=== PATIENT | female | born 1980 | race Caucasian/White ===

== ENCOUNTER 2021-03-25 15:58 | Emergency (ER) | payer OTHER, SELFPAY ==
--- NOTE | ~2021-03-25 | CT_ITS ---
EXAMINATION: CT abdomen pelvis wo con DATE: 03/25/2021 20:40 INDICATION: Right flank pain TECHNIQUE: Computed tomography (CT) of the abdomen and pelvis was performed without intravenous contr ast. Automated exposure control and iterative reconstruction technique were employed. The dose-length product was 1447.30 mGy-cm. COMPARISON: None FINDINGS: Lung bases are clear. No pleural effusion. Heart size is normal. Small pericardial effusion. Small sl iding-type hiatal hernia. Liver, gallbladder, spleen, pancreas, left kidney and bilateral adrenal gla nds are normal. 2.4 cm right renal cyst. No urolithiasis or hydronephrosis. Moderate diverticulosis a long the descending and proximal sigmoid colon without adjacent inflammatory change to suggest divert iculitis. Small bowel and appendix are normal. Bladder, anteverted uterus and bilateral adnexa are un remarkable. No free intraperitoneal gas or fluid. No pathologically enlarged abdominal or pelvic lymp hadenopathy. Chronic mild anterior wedging at T10-T12 with mild thoracolumbar spondylosis. IMPRESSION: 1. No urolithiasis or acute intra-abdominal/pelvic process. 2. Small pericardial effusion. 3. Small sliding-type hiatal hernia. Reviewed, dictated and finalized at location A.
[2021-03-25 16:00] VITALS: BP 146/96; PULSE 113; RESP 16; TEMP 36.7; O2SAT 100
[2021-03-25 16:19] LABS: Basophils Absolute Auto 0.1 K/mm3 (0.0-0.1); Basophils Percent Auto 0.7 % (0.2-1.2); Eosinophils Absolute Auto 0.1 K/mm3 (0-0.3); Eosinophils Percent Auto 1.2 % (0-4.4); Hemoglobin 13.1 g/dL (12.0-15.0); Immature Granulocyte Absolute 0.03 K/mm3 (0.00-0.031); Immature Granulocyte Percent A 0.3 % (0-0.5); Lymphocytes Absolute Auto 2.66 K/mm3 (0.9-3.2); Lymphocytes Percent Auto 27.3 % (18.3-44.2); Mean Corpuscular HGB Conc 33.6 g/dl (32-36); Mean Corpuscular Hemoglobin 29.6 pg (26-34); Mean Corpuscular Volume 88.2 fl (80-100); Mean Platelet Volume 10.9 fl (7.4-10.4); Monocytes Absolute Auto 0.8 K/mm3 (0.1-0.6); Monocytes Percent Auto 7.7 % (2.6-8.5); Neutrophils Absolute Auto 6.1 K/mm3 (1.3-6.7); Neutrophils Percent Auto 62.8 % (45.5-73.1); Platelet Count Result 356 k/mm3 (150-375); Red Blood Count 4.42 M/mm3 (4.2-5.4); Red Cell Distribution Width 13.2 % (11.5-14.5); White Blood Count 9.7 K/mm3 (4.5-10.0)
--- NOTE | 2021-03-25 19:22 | ED.GENADULT ---
HPI - General Adult General Chief complaint: Abdominal Pain Stated complaint: right flank pain Time Seen by Provider: 03/25/21 19:10 History of Present Illness HPI narrative: Patient is a 40-year-old female who presents ER with right-sided flank pain. Began 3 days ago. No trauma. Waxes and wanes in intensity. Mild nausea. No urinary frequency urgency or dysuria. No hematuria. No history of kidney stones. No history of trauma. Denies chest pain or chest pressure or difficulty breathing. Has been taking ibuprofen without relief. Related Data Allergies Allergy/AdvReac Type Severity Reaction Status Date / Time No Known Allergies Allergy Mild Verified 05/22/20 08:53 Review of Systems Review of Systems: All systems reviewed & are unremarkable except as noted in HPI and below Constitutional: Constitutional: Denies chills, Denies fever(s) and Denies weakness ENT: Denies nasal congestion and Denies sore throat Cardiovascular: Cardiovascular: Denies chest pain and Denies radiating jaw, neck or arm pain Gastrointestinal: Gastrointestinal: Reports abdominal pain, Denies diarrhea, Reports nausea and Denies vomiting Genitourinary: Genitourinary: Denies hematuria, Denies nocturia, Denies dysuria and Reports flank pain PMFSH Past Medical History Medical History (Updated 03/25/21 @ 21:07 by Jesse Perez MD) Acute sinus infection BMI 45.0-49.9, adult Facial pain Hypertension Surgical History Surgical History (Updated 03/25/21 @ 19:23 by Jesse Perez MD) No history of previous surgery Family History Family History Other Diabetes mellitus Family history of coronary artery disease Hypertension Social History Social History Smoking status: Never smoker Alcohol intake: never Gender identity (if verbalized by the patient): Female Exam Narrative: GENERAL: Well-appearing, Morbidly obese, and in no acute distress. HEAD: Normocephalic, atraumatic. ENT: Mucous membranes moist. CHEST: Clear to auscultation. No respiratory distress. HEART: Regular rate and rhythm. Normal peripheral pulses. ABDOMEN: Soft, nontender, nondistended. No CVA tenderness. EXTREMITIES: Normal range of motion. No edema. NEURO: Alert and oriented x3. PSYCH: Normal mood and affect. Course Course Emergency Course: Patient informed results. Toradol for pain. Discharge home. Vital Signs Vital signs: Vital Signs Temperature 98.1 F 03/25/21 16:00 Pulse Rate 113 H 03/25/21 16:00 Respiratory Rate 16 03/25/21 16:00 Blood Pressure 146/96 H 03/25/21 16:00 Pulse Oximetry 100 03/25/21 16:00 Temperature 98.2 F 03/25/21 20:10 Pulse Rate 94 03/25/21 20:10 Respiratory Rate 179 H 03/25/21 20:10 Blood Pressure 147/86 H 03/25/21 20:10 Pulse Oximetry 100 03/25/21 20:10 Medical Decision Making Vital Signs Vital Signs: Vital Signs Temperature 98.1 F 03/25/21 16:00 Pulse Rate 113 H 03/25/21 16:00 Respiratory Rate 16 03/25/21 16:00 Blood Pressure 146/96 H 03/25/21 16:00 Pulse Oximetry 100 03/25/21 16:00 Temperature 98.2 F 03/25/21 20:10 Pulse Rate 94 03/25/21 20:10 Respiratory Rate 179 H 03/25/21 20:10 Blood Pressure 147/86 H 03/25/21 20:10 Pulse Oximetry 100 03/25/21 20:10 Lab Data Result diagrams: 03/25/21 16:14 03/25/21 19:57 Labs: Lab Results 03/25/21 03/25/21 03/25/21 Range/Units 16:14 19:57 19:58 WBC 9.7 (4.5-10.0) K/mm3 RBC 4.42 (4.2-5.4) M/mm3 Hgb 13.1 (12.0-15.0) g/dL Hct 39.0 (37.0-47.0) % MCV 88.2 (80-100) fl MCH 29.6 (26-34) pg MCHC 33.6 (32-36) g/dl RDW 13.2 (11.5-14.5) % Plt Count 356 (150-375) k/mm3 MPV 10.9 H (7.4-10.4) fl Immature Gran % (Auto) 0.3 (0-0.5) % Neut % (Auto) 62.8 (45.5-73.1) % Lymph % (Auto) 27.3 (18.3-44.2) % Mon
[2021-03-25 20:10] VITALS: BP 147/86; PULSE 94; RESP 179; TEMP 36.8; O2SAT 100
[2021-03-25 20:20] LABS: Add Urine Microscopic? YES; Appearance Urine Clear (Clear); Bacteria Urine Trace /hpf; Bilirubin Urine Negative (Negative); Blood Urine 1+ (Negative); Color Urine Yellow (Yellow); Glucose Urine UA Negative (Negative); Ketones Urine Negative (Negative); Leukocyte Esterase Ur Negative LEU/UL (Negative); Mucus Urine Rare /lpf; Nitrate Urine Negative (Negative); Protein Urine Negative (Negative); Squamous Epithelial Cell Urine Few /hpf (Few); Urobilinogen Urine Negative mg/dL (<2.0)
[2021-03-25 20:24] LABS: Alanine Aminotransferase 22 U/L (4-35); Albumin Level 4.7 g/dL (3.5-5.1); Alkaline Phosphatase 101 U/L (38-126); Anion Gap 12 mmol/L (8-16); Aspartate Amino Transferase 23 U/L (14-36); Bilirubin,Total 0.5 mg/dL (0.2-1.3); Blood Urea Nitrogen 14 mg/dL (7-17); Calcium 9.9 mg/dL (8.4-10.2); Carbon Dioxide 26 mmol/L (22-30); Chloride 100 mmol/L (98-107); Estimated CRCL calculation 116 ml/min; Estimated Glomerular Filt Rate > 60; Glucose 104 mg/dL (65-110); Lipase 43 U/L (23-300); Potassium 3.7 mmol/L (3.4-5.0); Sodium 138 mmol/L (137-145)
[2021-03-25] MEDS: KETOROLAC 30 MG/ML VIAL (*BKC) IV PUSH (21:06)
== END 2021-03-25 21:07 | disposition home or self-care (01) ==
PROVIDERS: Emergency Medicine; Emergency Provider Emergency Medicine; PCP Family Medicine
DX: R10.9 Unspecified abdominal pain (principal); I10 Essential (primary) hypertension
CPT/HCPCS: 36415; 74176; 80053; 81001; 81025; 83690; 85025; 96374; 99284; J1885

== ENCOUNTER 2021-09-21 07:43 | Outpatient (CLI) | payer OTHER, SELFPAY ==
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
== END 2021-09-21 07:44 | disposition home or self-care (01) ==
LOC: ANHIMG 07:49
PROVIDERS: PCP Family Medicine; Visit Provider Nurse Practitioner Family
DX: R10.32 Left lower quadrant pain (principal)
CPT/HCPCS: 76705

== ENCOUNTER 2021-12-07 09:33 | Outpatient (CLI) | payer OTHER, SELFPAY ==
--- NOTE | ~2021-12-07 | XR_ITS ---
EXAMINATION: XR sacrum coccyx min 2V INDICATION: Low back pain TECHNIQUE: Three views of the sacrum and coccyx are obtained. COMPARISON: CT, 03/25/2021 FINDINGS: Bone alignment is normal. There is no fracture. The soft tissues are unremarkable. IMPRESSION: 1. No radiographic correlate for the patient's symptoms. Reviewed, dictated and finalized at location A.
--- NOTE | ~2021-12-07 | XR_ITS ---
EXAMINATION: XR lumbar spine 2-3V DATE: 12/07/2021 09:51 INDICATION: Low back pain TECHNIQUE: Anteroposterior and lateral views of the lumbar spine, and cone-down lateral view of the l umbosacral junction were obtained. COMPARISON: CT, 03/25/2021 FINDINGS: There is no fracture, dislocation, or subluxation. There is mild loss of intervertebral dis c space height at L1-2. The vertebral body heights are normal. Small degenerative osteophytes project from the anterior endplates of multiple vertebral bodies. There is mild facet osteoarthritis of the lower lumbar spine. The bowel gas pattern is normal. IMPRESSION: 1. Mild lumbar spondylosis without acute findings. Reviewed, dictated and finalized at location A.
== END 2021-12-07 09:34 | disposition home or self-care (01) ==
LOC: ANHIMG 09:35
PROVIDERS: PCP Family Medicine; Visit Provider Nurse Practitioner Family
DX: M54.18 Radiculopathy, sacral and sacrococcygeal region (principal); M47.896 Other spondylosis, lumbar region
CPT/HCPCS: 72100; 72220

== ENCOUNTER 2023-04-03 17:24 | Emergency (ER) | payer OTHER, SELFPAY ==
[2023-04-03 17:38] VITALS: BP 132/76; PULSE 100; RESP 16; TEMP 36.9; O2SAT 100
--- NOTE | 2023-04-03 17:46 | ED.BACK ---
HPI - Back Pain/Injury General Chief Complaint: Back Pain/Injury Stated Complaint: Back pain Time Seen by Provider: 04/03/23 17:39 Source: patient, family () and RN notes reviewed Mode of arrival: ambulatory Limitations: no limitations History of Present Illness HPI Narrative: Patient presents today complaining of right-sided low back pain x1 week. Denies any injury or trauma. Prior to onset of symptoms, patient had hurt her ankle and had been limping for a few days. Has been believes that this may be contributing to the beginning of her symptoms. Patient's ankle is feeling better, but her back pain process. Denies radiation of pain down her leg. Denies numbness or tingling in the extremities or genitalia. Denies loss of bowel or bladder control. She currently rates her pain 5/10, which increases with walking or riding in the car. She has been taking ibuprofen without relief. Related Data Allergies Allergy/AdvReac Type Severity Reaction Status Date / Time No Known Allergies Allergy Mild Verified 04/03/23 17:33 Review of Systems Review of Systems: CONSTITUTIONAL: Denies body aches, fever, chills, or sweats. EYES: Denies visual changes, redness, or discharge. ENT: Denies rhinorrhea, congestion, sore throat, or otalgia. CARDIOVASCULAR: Denies chest pain, palpitations, or edema. RESPIRATORY: Denies cough or dyspnea. GASTROINTESTINAL: Denies abdominal pain, nausea, vomiting, or diarrhea. GENITOURINARY: Denies dysuria or hematuria. SKIN: Denies rash, itching, or wounds. MUSCULOSKELETAL: Denies joint pain, or myalgia.+ back pain NEUROLOGIC: Denies headache, numbness, tingling, or weakness. PSYCH: Denies depression or anxiety. [facility] Past Medical History Medical History Acute sinus infection Adult BMI 50.0-59.9 kg/sq m BMI 45.0-49.9, adult Facial pain Hypertension Surgical History Surgical History No history of previous surgery Family History Family History Father Thyroid activity decreased Mother Hypertension Sibling No problems noted. Other Diabetes mellitus Family history of coronary artery disease Social History Social History Smoking status: Never smoker Second hand tobacco smoke exposure: No Alcohol intake: never Substance use: never Substance use type: does not use Living arrangements: with family Occupation/Education: occupation Additional occupation/education comments: [employer] Gender identity (if verbalized by the patient): Female Comments At time of signature, I have reviewed and agree with nursing past medical, surgical, social and family history unless otherwise noted. Please see nursing chart for further information. There is no relevant family history pertinent to the presenting complaint Exam Narrative: GENERAL: Well-appearing, well-nourished, and in no acute distress. HEAD: Normocephalic, atraumatic. EYES: EOMI. No redness or drainage. Conjunctivae normal. ENT: Mucous membranes pink and moist. NECK: Normal AROM. CHEST: No respiratory distress. MUSCULOSKELETAL: No bony tenderness of the spine. Mild tenderness of the right lower lumbar paraspinal muscles. No extension to the SI joint. Distal sensation intact. Saddle sensation intact. Capillary refill normal. Pedal pulses normal. Dorsiflexion and plantar flexion equal and strong against resistance. Bilateral patellar reflexes 2+. Full range of motion of the hips and knees. EXTREMITIES: Normal range of motion. No edema. SKIN: Warm, dry, no rash. Capillary refill normal. Normal skin turgor. NEURO: No focal deficits. Alert and oriented x3. Gait steady. PSYCH: Normal affect. No signs of depression or anxiety. Course Course Level of
== END 2023-04-03 17:56 | disposition home or self-care (01) ==
PROVIDERS: Emergency Provider Nurse Practitioner; PCP Family Medicine
DX: S39.012A Strain of muscle, fascia and tendon of lower back, initial encounter (principal); I10 Essential (primary) hypertension; X58.XXXA Exposure to other specified factors, initial encounter
CPT/HCPCS: 99213; G0463

== ENCOUNTER 2025-03-10 11:25 | Emergency (ER) | payer OTHER, SELFPAY ==
--- NOTE | ~2025-03-10 | XR_ITS ---
EXAMINATION: XR elbow LT 2V DATE: 03/10/2025 11:57 INDICATION: Fall. Pain TECHNIQUE: 2 images of the left elbow were obtained COMPARISON: None. FINDINGS: [ No significant degenerative change.] [ No radiographic evidence for an acute fracture or dislocation.] [ No radiopaque foreign body.] [ No sclerotic or destructive bone lesions.] Soft tissue swelling about the left elbow. No elbow joint effusion. IMPRESSION: 1. [ No acute bony abnormality identified.] If symptoms persist or worsen consider a short-term follow-up study or additional imaging for further assessment. Reviewed, dictated and finalized at location Q. IMPRESSION: 1. [ No acute bony abnormality identified.] If symptoms persist or worsen consider a short-term follow-up study or addition al imaging for further assessment.
--- NOTE | ~2025-03-10 | XR_ITS ---
EXAMINATION: XR humerus LT, 03/10/2025 11:45 CDT HISTORY: fall COMPARISON: No comparisons available. Findings: No acute fracture or malalignment. No significant degenerative changes. Soft tissues unremarkable. Impression: No acute fracture or malalignment. Reviewed, dictated and finalized at location A. Impression: No acute fracture or malalignment.
--- NOTE | ~2025-03-10 | XR_ITS ---
EXAMINATION: XR knee RT 3V, 03/10/2025 11:45 CDT HISTORY: fall COMPARISON: No comparisons available. Findings: No acute fracture or malalignment. No significant degenerative changes. Soft tissues unremarkable. Impression: No acute fracture or malalignment. Reviewed, dictated and finalized at location A. Impression: No acute fracture or malalignment.
[2025-03-10 11:29] VITALS: BP 143/66; PULSE 95; RESP 19; TEMP 37.2; O2SAT 100
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
--- NOTE | 2025-03-10 11:44 | PC.NURSE ---
pt wheeled to imaging at this time. nad noted
[2025-03-10] MEDS: TETANUS,DIPHTHERIA,AC PERTUSSIS ADULT (0.5 ML) BOOSTRIX IM (12:00)
[2025-03-10 12:35] VITALS: BP 141/88; PULSE 79; RESP 16; TEMP 37; O2SAT 98
--- NOTE | 2025-03-10 12:35 | PC.NURSE ---
rn offered wound care to be cleansed with ns/gauze and pt refused at this time.
--- OUTSIDE RECORDS SUMMARY | 2025-03-10 13:39 | XMS_ITS | Clinical Summary ---
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
--- OUTSIDE RECORDS SUMMARY | 2025-03-10 14:03 | XMS_ITS | Clinical Summary ---
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
== END 2025-03-10 12:36 | disposition home or self-care (01) ==
PROVIDERS: Emergency Provider Emergency Medicine; PCP Family Medicine
DX: S63.502A Unspecified sprain of left wrist, initial encounter (principal); I10 Essential (primary) hypertension; W18.30XA Fall on same level, unspecified, initial encounter; Z23 Encounter for immunization
CPT/HCPCS: 73060; 73070; 73562; 90471; 90715; 99284